=== PATIENT | female | born 1950 | race Caucasian/White ===

== ENCOUNTER 2017-09-01 09:16 | Emergency (ER) | payer BC ==
[2017-09-01 09:44] VITALS: BP 132/86
--- NOTE | 2017-09-01 09:59 | UC ---
UC General HPI - HPI Summary HPI Summary: 2 day hx sore throat, swollen glands and feeling foggy. - History of Current Complaint Chief Complaint: UCGeneralIllness Stated Complaint: SORE THROAT CONGESTION FEVER Time Seen by Provider: 09/01/17 09:52 Hx Obtained From: Patient Onset/Duration: Gradual Onset Timing: Constant Pain Intensity: 3 - Allergy/Home Medications Allergies/Adverse Reactions: Allergies Allergy/AdvReac Type Severity Reaction Status Date / Time bee venom protein (honey bee) Allergy Swelling Verified 09/01/17 09:40 Home Medications: Home Medications Simvastatin TAB(NF) [Zocor(NF)] 20 mg PO DAILY 09/01/17 [History Confirmed 09/01] PMH/Surg Hx/FS Hx/Imm Hx Endocrine History: Dyslipidemia - Surgical History Surgical History: Yes Surgery Procedure, Year, and Place: cataract - Family History Known Family History: Positive: None - Social History Occupation: Employed Full-time Lives: With Family Alcohol Use: Daily Alcohol Amount: 1 glass of wine daily Substance Use Type: None Smoking Status (MU): Heavy Every Day Tobacco Smoker Type: Cigarettes Amount Used/How Often: 1ppd Length of Time of Smoking/Using Tobacco: ~ 40 years Have You Smoked in the Last Year: Yes - Immunization History Most Recent Influenza Vaccination: Not the Season Vaccination Up to Date: Yes Review of Systems Constitutional: Negative Skin: Negative Eyes: Negative ENT: Sore Throat, Sinus Congestion Respiratory: Negative Cardiovascular: Negative Gastrointestinal: Negative Genitourinary: Negative Motor: Negative Neurovascular: Negative Musculoskeletal: Negative Neurological: Negative Psychological: Negative Is Patient Immunocompromised?: No All Other Systems Reviewed And Are Negative: Yes Physical Exam Triage Information Reviewed: Yes Appearance: Well-Appearing Vital Signs: Initial Vital Signs Temp 98.9 F 09/01/17 09:35 Pulse 79 09/01/17 09:35 Resp 16 09/01/17 09:35 BP 132/86 09/01/17 09:35 Pulse Ox 98 09/01/17 09:35 Eyes: Positive: Conjunctiva Clear ENT: Positive: Pharyngeal erythema, TMs normal. Negative: Nasal congestion, Nasal drainage Neck: Positive: Supple, Tenderness @ - peritonsilar with mild swelling Respiratory: Positive: Lungs clear, Normal breath sounds Cardiovascular: Positive: RRR, No Murmur Abdomen Description: Positive: Nontender, No Organomegaly, Soft Bowel Sounds: Positive: Present Musculoskeletal: Positive: ROM Intact Neurological: Positive: Alert Psychological: Positive: Age Appropriate Behavior Skin Exam: Normal Diagnostics - Laboratory Diagnostic Studies Completed/Ordered: rapid strep=neg Course/Dx - Course Course Of Treatment: rapid strep=neg - Differential Dx - Multi-Symptom Provider Diagnoses: pharyngitis Discharge - Sign-Out/Discharge Documenting (check all that apply): Discharge/Admit/Transfer - Discharge Plan Condition: Stable Disposition: HOME Patient Education Materials: Pharyngitis (ED) Referrals: Jeff Coelho MD [Primary Care Provider] - 5 Days - Billing Disposition and Condition Condition: STABLE Disposition: HOME
== END 2017-09-01 10:26 | disposition home or self-care (01) ==
LOC: UCCORT 09:16
DX: J02.9 Acute pharyngitis, unspecified (principal)
CPT/HCPCS: 87651; 99211; G0463

== ENCOUNTER 2017-09-07 16:41 | Emergency (ER) | payer BC ==
[2017-09-07 16:59] VITALS: BP 155/82
[2017-09-07] MEDS ORDERED: Tetracaine 0.5% OPTH.SOL 4 ML* 1 DROP BTL RIGHT EYE ONE (17:04)
[2017-09-07] MEDS ORDERED: Fluorescein Sod TOPICAL 0.6* 0.6 MG TEST OPHTHALMIC ONE (17:04)
[2017-09-07] MEDS ORDERED: Tetan/Diph/Pertus SYR(Tdap)* 0.5 ML SYR(BOOSTRIX) use SYR IM ONE (17:33)
--- NOTE | 2017-09-07 17:39 | UC ---
Eye Complaint HPI - HPI Summary HPI Summary: Pt here w/ Rt eye injury earlier today. Had just pruned her [employer] plant when she leaned in to move it and accidentally got poked in the eye with a stem/leaf. Has a red spot in eye along with pain - worse w/ keeping eye open. Eye is watery but no change in vision. Unsure of last tetanus vaccine. Does not wear contact lens in this eye (wears one in other eye). Flushed eye with water after injury. No periorbital swelling or pain with movement. 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 - Pain Intensity: 4 - Allergies/Home Medications Allergies/Adverse Reactions: Allergies Allergy/AdvReac Type Severity Reaction Status Date / Time bee venom protein (honey bee) Allergy Swelling Verified 09/07/17 16:59 Home Medications: Home Medications Ibuprofen TAB* [Advil TAB*] 200 mg PO Q8H PRN 09/07/17 [History Confirmed ] PMH/Surg Hx/FS Hx/Imm Hx Previously Healthy: Yes - Surgical History Surgical History: Yes Surgery Procedure, Year, and Place: Rt cataract removal - Family History Known Family History: Positive: None - Social History 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 Lives: With Family Alcohol Use: Daily Alcohol Amount: 1 glass of wine daily Substance Use Type: None Smoking Status (MU): Current Every Day Smoker Type: Cigarettes Amount Used/How Often: 1ppd Length of Time of Smoking/Using Tobacco: ~ 40 years Have You Smoked in the Last Year: Yes - Immunization History Most Recent Influenza Vaccination: Not the 2015/2015 Season Most Recent Tetanus Shot: unknown Vaccination Up to Date: Yes Review of Systems Constitutional: Negative Eyes: Drainage, Eye Redness Neurovascular: Negative Neurological: Negative Psychological: Negative Is Patient Immunocompromised?: No All Other Systems Reviewed And Are Negative: Yes Physical Exam Triage Information Reviewed: Yes Appearance: Well-Appearing, Well-Nourished, Pain Distress - mild Vital Signs: Initial Vital Signs Temp 98.1 F 09/07/17 16:52 Pulse 82 09/07/17 16:52 Resp 16 09/07/17 16:52 BP 155/82 09/07/17 16:52 Pulse Ox 98 09/07/17 16:52 Vital Signs Reviewed: Yes Eyes: Positive: Conjunctiva Clear, Other: - Rt eye sclera at 1:00 w/ 2mm area of bright red blood (contained - no active bleeding/leaking - appears to be superficial hemorrhage) - no FB observed; EOMI, PERRLA, no photophobia, eye is watery w/ tears; no periorbital edema/erythema ENT Exam: Normal Cardiovascular Exam: Normal Cardiovascular: Positive: RRR Skin Exam: Normal Procedures - Eye Procedure Alcaine Drops Administered: No - tetracaine; fluoresceine uptake + corneal abrasion within iris/pupil 2:00 Eye FB Removal: other - (-) Siedel's sign Re-Evaluation - Re-Evaluation First Eval Change: Improved - s/p tetracaine Eye Complaint Course/Dx - Differential Dx/Diagnosis Provider Diagnoses: right eye corneal abrasion Discharge - Sign-Out/Discharge Documenting (check all that apply): Discharge/Admit/Transfer - Discharge Plan Condition: Stable Disposition: HOME Prescriptions: Erythromycin OPTH OINT* [Erythromycin 0.5% OPTH OINT*] 1 applic RIGHT EYE TID # 1 tube Patient Education Materials: Corneal Abrasion (ED) Referrals: Hermann May MD [Medical Doctor] - Additional Instructions: Take advil (ibuprofen) 800mg every 8 hours with food OR aleve (naproxen) 500mg every 12 hours with food as needed for pain Apply ice pack for pain/swelling Use antibiotic medication as directed and follow-up with ophthomologist tomorrow - call in the morning to schedule an appointment. *If pain is worse or you develop pain with eye movement, change in vision, go to the ED - Billing Disposition and Condition Condition: STABLE Disposition: HOME
[2017-09-07] MEDS ORDERED: Erythromycin OPTH OINT* APPLIC OINT RIGHT EYE ONE (17:53)
[2017-09-07] MEDS ORDERED: Erythromycin OPTH OINT* APPLIC OINT RIGHT EYE SCH ×2 (18:01→21:00)
[2017-09-07] MEDS ORDERED: Erythromycin OPTH OINT* APPLIC OINT ONE (18:04)
== END 2017-09-07 18:11 | disposition home or self-care (01) ==
LOC: UCCORT 16:41
DX: T15.01XA Foreign body in cornea, right eye, initial encounter (principal); W22.8XXA Striking against or struck by other objects, initial encounter; Y93.H2 Activity, gardening and landscaping; Y92.007 Garden or yard of unspecified non-institutional (private) residence as the place of occurrence of the external cause; F17.210 Nicotine dependence, cigarettes, uncomplicated
CPT/HCPCS: 90471; 90715; 99212; A9270-GY; G0463